=== PATIENT | male | born 1955 | race Caucasian/White ===

== ENCOUNTER 2021-09-13 14:45 | Inpatient (IN) | payer OTHER ==
[~2021-09-13] VITALS: Ht 193 cm; Wt 87.5 kg
[2021-09-13] MEDS ORDERED: WARFARIN SODIUM5 MG (15:16)
[2021-09-13] MEDS ORDERED: LIPITOR40 M1 (15:17)
== END 2021-09-17 11:04 | disposition left against medical advice (07) | DRG 918 ==
LOC: ER 14:45 → MEDI 19:58
PROVIDERS: ADMIT Internal Medicine; ATTEND Internal Medicine
DX: T45.511A Poisoning by anticoagulants, accidental (unintentional), initial encounter (principal); D68.51 Activated protein C resistance; E78.5 Hyperlipidemia, unspecified; Z79.01 Long term (current) use of anticoagulants